=== PATIENT | female | born 1940 | race Caucasian/White ===

== ENCOUNTER 2018-03-03 02:03 | Inpatient (IN) | payer MEDICARE, BC ==
[2018-03-03] MEDS ORDERED: Labetalol HCl 100 MG/20 ML VIAL ONE (02:26)
[2018-03-03 02:46] LABS: #Basophils 0.1 thou/uL (0.0-0.2); #Eosinphils 0.2 thou/uL (0.0-0.7); #Lymphocytes 1.6 thou/uL (1.20-3.40); #Monocytes 0.6 thou/uL (0.11-0.59); #Neutrophils 3.1 thou/uL (1.40-6.50); %Basophils 0.9 % (0.0-1.0); %Eosinophils 3.5 % (0.0-10.0); %Lymphocytes 28.8 % (21.0-51.0); %Monocytes 10.8 % (0.0-10.0); Hemoglobin 13.1 g/dL (12.0-16.0); Mean Corpuscular HGB CONC 34.9 g/dL (32.0-36.0); Mean Corpuscular Hemoglobin 31.4 pg (27.0-31.0); Mean Corpuscular Volume 89.8 fL (78.0-98.0); Mean Platelet Volume 8.2 fL (7.4-10.4); Platelet Count 166 thou/uL (130-400); RBC Distribution Width 12.3 % (11.5-14.5); Red Blood Cell (RBC) Count 4.17 mill/uL (4.20-5.40); White Blood Cell (WBC) Count 5.6 thou/uL (4.8-10.8)
[2018-03-03] MEDS ORDERED: Ondansetron HCl/PF 4 MG/2 ML Vial ONE (02:50)
[2018-03-03 02:57] LABS: ALT (SGPT) 16 U/L (8-55); AST (SGOT) 22 U/L (5-34); Albumin 4.2 g/dL (3.4-4.8); Alkaline Phosphatase 74 U/L (40-150); Anion Gap 14 mmol/L (10-20); BUN (Urea Nitrogen) 34 mg/dL (9.8-20.1); Bilirubin, Total 0.4 mg/dL (0.2-1.2); CK (CPK) 93 U/L (29-168); Calc. Creatinine Clearance 0 mL/min (70-130); Calcium 9.7 mg/dL (7.8-10.44); Carbon Dioxide 21 mmol/L (23-31); Chloride 101 mmol/L (98-107); Estimated GFR-MDRD 38; Globulin 2.9 g/dL (2.4-3.5); Glucose 102 mg/dL (83-110); Magnesium 2.3 mg/dL (1.6-2.6); Potassium 4.1 mmol/L (3.5-5.1); Protein, Total 7.1 g/dL (6.0-8.3); Sodium 132 mmol/L (136-145)
[2018-03-03 03:07] LABS: CKMB 2.1 ng/mL (0-6.6); Troponin I Less than 0.010 ng/mL (< 0.028)
[2018-03-03 03:49] LABS: Bilirubin Negative (Negative); Blood, Urine Negative (Negative); Clarity CLEAR (Clear); Glucose, Urine (Dipstick) Negative (Negative); Leukocyte Moderate (Negative); Nitrite Positive (Negative); Protein, Urine (Dipstick) Negative (Neg-Trace); Specific Gravity, Urine 1.012 (1.002-1.036); Urobilinogen 0.2 mg/dL (0.2-1.0)
[2018-03-03 03:52] LABS: Bacteria/HPF 1+ HPF (None Seen); Hyaline Casts/LPF 0-3 HYALINE CAST LPF (0-3 Hyaline); Pathc Cast-AUWi Flag 0.29 (0-2.49); RBC/HPF None Seen HPF (0-3); Squamous Epithelial 0-3 HPF (0-3); WBC/HPF 21-50 HPF (0-3)
[2018-03-03 03:55] LABS: Yeast-AUWi Flag 83.3 (0-25.0)
[2018-03-03] MEDS ORDERED: Acetaminophen 500 MG TAB ONE (04:08)
[2018-03-03] MEDS ORDERED: Meclizine HCl 25 MG TAB ONE ×2 (04:08→05:35)
[2018-03-03 04:16] LABS: Yeast-All Forms None Seen HPF (None Seen)
[2018-03-03] MEDS ORDERED: cefTRIAXone\\ROCEPHIN 1 GM VIAL ONE (04:44)
[2018-03-03] MEDS ORDERED: Ondansetron HCl/PF 4 MG/2 ML Vial IVP PRN (06:13)
[2018-03-03 06:26] VITALS: BMI 25.4
--- NOTE | 2018-03-03 07:59 | CT ---
CT OF HEAD NONCONTRAST: INDICATION: Head pain with nausea, vomiting, and dizziness. No prior imaging comparison available. FINDINGS: There is mild parenchymal volume loss. The ventricular system is age-appropriate in size. Mild avionics systems repairer gloria ischemic disease is present within the cerebral white matter. No evidence of intracranial hemorr tyra, mass effect, or midline shift. Suggestion of a possible pineal cyst, although incompletely alexandro luated on the basis of this exam. IMPRESSION: 1. No acute intracranial abnormalities. 2. Mild chronic ischemic disease. POS: AGNES
[2018-03-03] MEDS ORDERED: hydrALAZINE 20 MG/ML VIAL SLOW IVP PRN (08:28)
[2018-03-03] MEDS ORDERED: Bisacodyl 5 MG TAB PO PRN (08:28)
[2018-03-03] MEDS ORDERED: Nitroglycerin 2% Ointment 1 INCH/1 GM Packet TOP SCH (08:45)
--- NOTE | 2018-03-03 08:57 | RAD ---
PORTABLE CHEST 1 VIEW: DATE: 03/03/18. TIME: 1:37 a.m. HISTORY: Syncope. FINDINGS: The heart size is normal. The aorta is tortuous. A right-side pacing device is present. No focal a reas of consolidation, pneumothorax, or pleural effusions are seen. There is no evidence of rj pu lmonary edema. Calcified left hilar lymph nodes are noted. IMPRESSION: No acute process. POS: OFF
[2018-03-03] MEDS ORDERED: Enoxaparin Sodium 40 MG/0.4 ML SYRINGE SC SCH (09:00)
[2018-03-03] MEDS: Famotidine 20 MG TAB PO SCH ×2 (09:16→22:00)
[2018-03-03] MEDS: Aspirin 81 mg Enteric Coated Tablet PO SCH (09:16)
[2018-03-03] MEDS: Sodium Chloride 0.9% 1,000 ML IV SCH ×2 (09:16→23:59)
[2018-03-03 09:47] LABS: Cardiac Risk 2.4 (Less than 4.5)
[2018-03-03] MEDS ORDERED: Clopidogrel Bisulfate 300 MG TAB PO SCH (11:30)
--- NOTE | 2018-03-03 12:19 | EKG ---
Test Reason : Blood Pressure : / mmHG Vent. Rate : 086 BPM Atrial Rate : 086 BPM P-R Int : 264 ms QRS Dur : 076 ms QT Int : 382 ms P-R-T Axes : 054 079 029 degrees QTc Int : 457 ms Sinus rhythm with 1st degree A-V block Anteroseptal infarct , age undetermined Abnormal ECG When compared with ECG of 03-MAR-2018 02:57, (Unconfirmed) Sinus rhythm has replaced Electronic ventricular pacemaker Confirmed by LETY RUSSO ([id number]) on 03/03/2018 12:19:12 PM Referred By: MAGALY Confirmed By:LETY RUSSO
[2018-03-03 17:15] LABS: Troponin I 1.899 ng/mL (< 0.028)
[2018-03-03 19:32] LABS: CKMB 12.5 ng/mL (0-6.6)
--- NOTE | 2018-03-03 20:04 | CT ---
CT OF HEAD NONCONTRAST: 03/03/18 CLINICAL HISTORY: New onset blurry vision. FINDINGS: Mild parenchymal volume loss is again demonstrated with a stable sized ventricular system. Mild chron ic microvascular ischemic disease remains. There is no interval acute intracranial hemorrhage, mass e ffect or midline shift. The exam is otherwise stable to exam earlier same date, 0234 hours. IMPRESSION: Stable head CT without interval acute intracranial hemorrhage or mass effect. Should neurologic deficits persists, consider followup imaging for further evaluation. POS: POLA
[2018-03-03] MEDS ORDERED: Non-Formulary Item 1 EACH (Carvedilol [Carvedilol] 1 TAB) PO SCH (21:00)
[2018-03-03] MEDS ORDERED: Metoprolol Tartrate 25 MG TAB PO SCH (21:00)
[2018-03-03] MEDS ORDERED: Atorvastatin Calcium 40 MG TAB PO SCH (21:00)
--- NOTE | 2018-03-03 21:48 | CON ---
DATE OF CONSULTATION: 03/03/2018 HISTORY OF PRESENT ILLNESS: Amparo Holloway is a 77-year-old white female admitted with nausea, vomiting, and blurred vision. She is a patient of Dr. Harrison Davison. Five years ago she apparently had a syncopal episode and had a [employer] pacemaker placed for that. She denies ever having a myocardial infarction or heart failure. Today, she woke up with nausea, vomiting, dizziness, and has had problems with blurred vision as well as double vision. She came to the emergency room and has had a head CT x2, which only revealed chronic ischemic changes. She is unable to have an MRI secondary to her pacemaker. Apparently this afternoon, she had central chest pressure that lasted hours, although the patient is uncertain how long it lasted. She denied any shortness of breath or diaphoresis with this. Cardiac enzymes were obtained and they are abnormal. She denies any chest discomfort at this time. She has been placed on Plavix 300 mg loading dose and then 75 per day and topical nitrates placed in addition to aspirin. PAST MEDICAL HISTORY: Hypercholesterolemia, hypertension. OPERATIONS: Hysterectomy, pacemaker placement, lumbar surgery, tonsillectomy. MEDICATIONS: Include Carvedilol 12.5 b.i.d., spironolactone 25 daily, simvastatin 40 at bedtime, Prilosec 40 daily, Myrbetriq 25 mg daily, aspirin 81 daily, magnesium 500 daily. ALLERGIES: None. SOCIAL HISTORY: She smoked half pack per day, but stopped 15 years ago. She does not drink. FAMILY HISTORY: Mother and father had myocardial infarctions. REVIEW OF SYSTEMS: Twelve point review of systems unremarkable except as noted above. PHYSICAL EXAMINATION: VITAL SIGNS: Blood pressure 141/79, pulse of 90 (when she presented, her blood pressure was 203/111 in the emergency room). HEENT: PERRL. NECK: Supple. CHEST: Clear. CARDIAC: S1, S2 normal, without any S3, S4 or murmurs. Carotid upstrokes normal, without bruits. ABDOMEN: Normal bowel sounds, without tenderness, organomegaly. EXTREMITIES: Revealed no clubbing, cyanosis or edema. NEUROLOGIC: Grossly intact. LABORATORY DATA: EKG revealed sinus rhythm with first-degree AV block, possible inferior and anterior infarcts. Another EKG shows ventricular pacing. CBC is unremarkable. Sodium 132, potassium 4.1, chloride 101, carbon dioxide 21, BUN 34, creatinine 1.36. Troponin I's gone from less than 0.010 up to 1.899 , cholesterol 190, triglycerides 58, HDL 80, LDL 98. IMPRESSION: 1. Probable posterior circulation transient ischemic attack versus cerebrovascular accident. 2. Probable non-ST elevation myocardial infarction. She had a prolonged episode of chest discomfort and troponin I is elevated, although this certainly may also be secondary to a stroke. 3. Hypertension. 4. Diabetes. 5. Hypercholesterolemia. 6. History of pacemaker placement. 7. Chronic kidney disease. 8. Former smoker. PLAN: A pacemaker will be interrogated to see if she has any episodes of atrial fibrillation and may have contributed to possible CVA. I feel that Neurology should be consulted. Echocardiogram will be performed to reassess left ventricular function. Certainly consideration may need to be given to cardiac catheterization; however, I feel that her neurological problems need to be evaluated and stabilized. GARY
[2018-03-03] MEDS: Enoxaparin Sodium 80 MG/0.8 ML SYRINGE SC SCH (22:00)
--- NOTE | 2018-03-03 22:50 | PRG ---
DATE OF SERVICE: 03/03/2018 CHIEF COMPLAINT: Nausea, vomiting, diarrhea. HISTORIAN: Patient's daughter. HISTORY OF PRESENT ILLNESS: This is a 77-year-old female with past medical history of hyperlipidemia , hypertension, status post pacemaker, presented with nausea, vomiting x3, and diarrhea. Per the pat ient, she woke up in the night and she wanted to go to the bathroom; however, she still felt very diz zy and very weak and she knew that she cannot be able to make it to the bathroom without falling. Th erefore, patient basically sat in bed and patient experienced some right eye burning and pain. The p atient then tried to move and the patient stated that she became very nauseous and very dizzy. The p atient then reached out her family member and during that time, she was having difficulty trying to e xpress herself and also trying to talk to her family member on the phone. The patient stated that sh e vomited numerous times and she can count about 3 times that she had vomited. Therefore, due to her nausea, vomiting, dizziness, the daughter felt the patient might be experiencing a stroke. This pro mpted ED visit. In the ED, the patient was given Tylenol, meclizine Rocephin injection, aspirin, lab etalol IV and a liter of fluid. The patient was then admitted to telemetry; however, on telemetry fl oor, patient started experiencing some chest discomfort. With that discomfort, EKG and troponins wer e ordered. Patient denied any headaches, urinary incontinence, abdominal pain, palpitations; however , admitted to having some nausea, dizziness, vomiting, chest discomfort, some weakness and diarrhea. REVIEW OF SYSTEMS: Positive for nausea, vomiting, chest discomfort, weakness, dizziness, burning of the eyes, blurry vision. Denied others except as stated in the HPI. PAST MEDICAL HISTORY: 1. Status post pacemaker. 2. Hyperlipidemia 3. Hypertension. PAST SURGICAL HISTORY: 1. Status post pacemaker. 2. Hysterectomy. 3. Spinal surgery. SOCIAL HISTORY: The patient is a former tobacco smoker, quit about 15 years ago. Occasional drinker , does not participate in any illicit drugs. FAMILY HISTORY: The patient stated that her mother and father . ALLERGIES: No known drug allergies. CURRENT MEDICATION: 1. Carvedilol 12.5 mg b.i.d. 2. Spironolactone 25 mg daily. 3. Zocor 40 mg daily. 4. Prilosec 40 mg daily. 5. Myrbetriq 25 mg. 6. Aspirin 81 mg daily. 7. Magnesium 500 mg daily. CODE STATUS: FULL CODE. PHYSICAL EXAMINATION: VITAL SIGNS: In the ED, the patient's blood pressure was 203/111, pulse of 75, respiratory rate of 1 8, temperature of 97.8, on admission, patient's blood pressure was hovering around 190/117, pulse 69, respiratory rate of 16. GENERAL: The patient is lying in bed comfortably, is not in any acute distress. HEENT: Normocephalic, atraumatic. Pupils are equally round and reactive to light. Extraocular move ments are intact. No scleral icterus noted. No nystagmus. NECK: No JVD. Trachea is midline. Mucous membranes are moist. CHEST: Lungs clear to auscultation bilaterally. No wheezing, no rales appreciated. CARDIAC: Positive S1, S2. Regular rate and rhythm. No murmurs, no gallops, no rubs appreciated. ABDOMEN: Soft, nontender, nondistended. Positive bowel sounds in all quadrants. No masses or perit davis signs. No rigidity, no guarding. EXTREMITIES: Upper extremity presents with 5/5 upper extremity strength and good radial pulses bilat erally in the lower extremities. The patient has 5/5 lower extremity strength and good dorsalis pedi s pulses bilaterally. NEUROLOGIC: Cranial nerves II-XII grossly intact. No focal neurologic deficits noted during physica l exam. The patient is alert and oriented x3. SKIN: Warm and dry, and intact. No rashes noted. PSYCHIATRIC: Normal affect. LABORATORY DATA: Patient's WBC 5.6, hemoglobin 13, platelet of 116. Chemistry: Sodium 132, potassi um was 4.1, carbon dioxide of 21, chloride 101, anion gap of 14, BUN of 34, creatinine of 1.36. Trop onins, first set troponin was 0.010, second set of troponins that was ordered was 1.010 and third set climbed up to 1.899. CK-MB climbed up from 2.1-12.5. The patient's lipid panel, triglycerides 58, cholesterol 190, LDL 98, HDL is 80. Urinalysis patient has positive nitrite and moderate leukoestera se. IMAGING: CT of the head showed no acute intracranial abnormalities, mild chronic ischemic changes. Chest x-ray shows no acute process. EKG that was ordered for the patient was in sinus rhythm with first degree AV block, anteroseptal inf arct, age indeterminate. ASSESSMENT: This is a 77-year-old female being admitted for: 1. Transient ischemic attack. The patient has been admitted to stroke floor. We will do neuro chec ks. Patient is on aspirin. If consulted, Neurology will see the patient. At this time, patient elena s not have any focal neurologic deficit noted. CT scan of the brain is negative so far. We will con tinue to monitor the patient very closely. The patient is on atorvastatin 80. We will continue perm issive hypertension due to the possibility of a stroke. We will get another CT in about 24 hours, if the patient complains of any other symptoms. 2. Chest pain, rule out acute coronary syndrome, non-ST elevated myocardial infarction. The patient at this point has chest pain. Troponins were ordered and troponins have been trending up and has be en positive from 0.010 to 1.09 to 1.8. There has been some T-wave changes in the inferior lead and s ome changes in T-wave inversions anteriorly. Cardiology has been made aware of possible non-ST eleva tion myocardial infarction. The patient has been started on aspirin, Plavix, Coreg, nitro paste, and therapeutic Lovenox. We will continue to monitor the patient very closely, 3. Hypertensive emergency. Patient at this time is presented with blood pressure that was in the 20 0 systolic over 100 diastolic. This is concerning for possible PRES syndrome since the patient is tran ving blurry vision, nausea and vomiting. At this point, we will consider another CT of the head in a couple of hours. We are awaiting Neurology consult. The patient has a pacemaker and is not compati ble with MRI, so it is going to be very difficult to get MRI to assess if the patient has this syndro me. We will continue to monitor the patient very closely. We will allow for permissive hypertension and we will order labetalol and hydralazine p.r.n. if blood pressure goes over 200 systolic. At thi s time, patient's blood pressure is around 170. We will keep the blood pressure around 170s to 180s systolic. We will continue to monitor the patient. If anything is happened acutely, we will conside r transferring the patient to ICU. 4. History of hypertension. Currently, patient is hypertensive. We will continue permissive hypert ension. We will start patient on Coreg and put p.r.n. blood pressure medications if blood pressure g oes above 200. 5. Hyperlipidemia. Patient was started on atorvastatin 80. Continue the patient on statin medicati on. 4. Asymptomatic urinary tract infection. Patient has positive nitrite and positive leukoesterase, b ut patient is asymptomatic. Therefore, we will not treat the patient. 5. Acute kidney injury. Patient's creatinine is elevated at 1.3. We will monitor closely and if ivette murray's creatinine is continuing to go up, we will get Nephrology on consult and evaluate the patient . 6. Deep venous thrombosis prophylaxis. We will do Pepcid for gastrointestinal prophylaxis and will do Lovenox for deep venous thrombosis prophylaxis.
[2018-03-03] MEDS: Acetaminophen 325 MG TAB PO PRN (23:57)
--- NOTE | 2018-03-04 00:03 | CON ---
DATE OF CONSULTATION: 03/03/2018 REFERRING PROVIDER: Dr. Rex Johnson. REASON FOR CONSULTATION: Dizziness and diplopia. HISTORY OF PRESENT ILLNESS: Ms. Holloway is a pleasant 77-year-old female , who has been consulted for evaluation of dizziness and diplopia. The patient' s daughter and son were present at bedside. The patient reports this morning around 1:00 a.m., she woke up with severe burning pain behind her right eye. She tried to go to the bathroom and noticed severe dizziness, became nauseated and vomited. She had pressed the Life Alert on her bracelet, which prompted the EMS arrival. She continued to have the dizziness and feeling like her head was spinning. She was also nauseated and vomiting. She continued to have the symptoms throughout the night. This morning, she started having double vision. The double vision is horizontal in nature, worse with looking at distance and improved with closing either eye. She also felt off balance and difficulty with walking. She did not have any numbness, tingling or weakness in upper or lower extremities. There was no chest pain or palpitations. She denied having any headache. There is no change in her speech or swallowing. PAST MEDICAL HISTORY: Significant for hypertension, hyperlipidemia, coronary artery disease. PAST SURGICAL HISTORY: Significant for hysterectomy, pacemaker placement, laminectomy. SOCIAL HISTORY: She is a former tobacco user. She denies alcohol use. She denies illicit drug use. CURRENT MEDICATIONS: Please review MAR. ALLERGIES: No known drug allergies. REVIEW OF SYSTEMS: As mentioned above in the HPI, otherwise negative. PHYSICAL EXAMINATION: VITAL SIGNS: Blood pressure of 141/79, pulse of 90, temperature of 97.6, respirations of 12, O2 sats of 94% on room air. GENERAL: Well-developed, well-nourished female, in no apparent distress. RESPIRATORY: Clear to auscultation bilaterally. CARDIOVASCULAR: Regular rate and rhythm. NEUROLOGIC: Mental status: The patient is awake, alert, oriented x3. Speech and language: Fluent speech. Cranial nerves: Pupils are 3 mm and reactive. Visual lane are intact. External muscles appear intact. No nystagmus is noted. No ptosis noted. Face appears symmetric. Tongue and uvula are midline. Motor exam showed normal tone and bulk with a 5/5 strength in both upper and lower extremities. Sensory: Sensation is intact and symmetric. Deep tendon reflexes: 2+ reflexes in both upper and lower extremities. Babinski: Plantar responses flexion bilaterally. Coordination intact to finger -nose-finger and finger tapping bilaterally. [id number]-ls-[id number] test is normal bilaterally. Romberg is positive. Gait is wide based, unsteady gait. LABORATORY DATA: Labs are reviewed, which included CBC, CMP, troponin, CK-MB lipid profile, and urinalysis, which is significant for BUN of 34, creatinine of 1.36, troponin of 1.899 and CK-MB of 12.5. Urinalysis showed positive nitrites, moderate leukocyte esterase and 21-50 wbc with 1+ bacteria. IMAGING STUDIES: CT head without contrast was reviewed, which showed no acute intracranial abnormality. IMPRESSION: 1. Diplopia. 2. Dizziness. 3. Possible brainstem infarct 4. Elevated troponin. ASSESSMENT AND PLAN: Ms. Holloway is a pleasant 77-year-old female with a pacemaker, presented with an acute onset of dizziness, vertigo, and diplopia. Based on the description of her symptoms, she likely has a brainstem involving infarct, possibly involving cranial nerve III. I have discussed with the patient and her family that given she has a pacemaker, we are unable to obtain MRI brain. Due to the fact that the MRI cannot be obtained, it is difficult to rule out stroke as CT scan does not well visualized infarction in the posterior fossa. Given that she has elevation of troponin, this is likely cardioembolic event. I do think that she needs echocardiogram and pacemaker interrogation done which she has planned to undergo tomorrow and if they are normal, she would benefit from having a cardiac catheterization done. For now, I would recommend continuing her on Plavix 75 mg daily for secondary stroke prevention. I have recommended for her to wear eye patch on each eye alternatively every 4 hours, which may help improve her double vision. If there is a source for cardioembolism then she will benefit from starting on anticoagulation therapy. I have answered all the questions that the patient's family had, to their satisfaction. Thank you for your consultation. GARY
[2018-03-04] MEDS: Carvedilol 6.25 MG TAB PO SCH ×3 (00:05→20:16)
[2018-03-04 05:34] LABS: Anion Gap 11 mmol/L (10-20); BUN (Urea Nitrogen) 17 mg/dL (9.8-20.1); Calc. Creatinine Clearance 51 mL/min (70-130); Calcium 8.6 mg/dL (7.8-10.44); Carbon Dioxide 20 mmol/L (23-31); Chloride 104 mmol/L (98-107); Estimated GFR-MDRD 55; Glucose 88 mg/dL (83-110); Potassium 3.8 mmol/L (3.5-5.1); Sodium 131 mmol/L (136-145)
[2018-03-04] MEDS: Enoxaparin Sodium 80 MG/0.8 ML SYRINGE SC SCH ×2 (08:33→20:16)
[2018-03-04] MEDS: Magnesium Oxide 250 MG TAB PO SCH (08:34)
[2018-03-04] MEDS: Aspirin 81 mg Enteric Coated Tablet PO SCH (08:34)
[2018-03-04] MEDS: Famotidine 20 MG TAB PO SCH ×2 (08:37→20:16)
[2018-03-04] MEDS: Clopidogrel Bisulfate 75 MG TAB PO SCH (08:37)
[2018-03-04] MEDS: Acetaminophen 325 MG TAB PO PRN (08:46)
[2018-03-04] MEDS ORDERED: Non-Formulary Item 1 EACH (Magnesium Oxide [Magnesium] 500 MG) PO SCH (09:00)
[2018-03-04] MEDS ORDERED: Polyethylene Glycol 3350 17 GM Packet PO PRN (15:32)
[2018-03-04] MEDS ORDERED: Senokot 8.6 MG TAB PO PRN (15:32)
[2018-03-04] MEDS ORDERED: Meclizine HCl 25 MG TAB PO PRN (15:32)
--- NOTE | 2018-03-04 17:31 | ULT ---
CAROTID ULTRASOUND WITH MONTE SCALE AND DOPPLER DUPLEX COLOR FLOW IMAGING SPECTRAL ANALYSIS PERFORMED: 03/04/18 CLINICAL INDICATION: Stroke, diplopia. FINDINGS: There is moderate to severe bilateral plaque formation some of which is calcified which does limit as sessment. There is no abnormal elevation of ICA velocities bilaterally. ICA to CCA ratio falls within normal range bilaterally. There is antegrade flow within the visualized bilateral vertebral arteries. IMPRESSION: 1. No hemodynamically significant stenosis of the right internal carotid artery. 2. No hemodynamically stenosis of the left internal carotid artery. 3. There is prominent plaque formation some of which is calcified. POS: POLA
[2018-03-04] MEDS ORDERED: Communication Order-Pharmacy FS SCH (17:45)
--- NOTE | 2018-03-04 18:12 | PDOC.PN ---
- Subjective Encounter Start Date: 03/04/18 Encounter Start Time: 14:00 Patient seen and examined for Acute CVA/NSTEMI. Double vision +. No new CP or focal deficits. No overnight events - Objective MAR Reviewed: Yes Vital Signs & Weight: Vital Signs (12 hours) Temp Pulse Resp BP BP Pulse Ox 03/04/18 15:48 97.4 F L 70 18 125/68 94 L 03/04/18 11:52 97.7 F 64 18 132/68 94 L 03/04/18 08:36 141/83 H 03/04/18 08:23 98.6 F 74 20 141/83 H 92 L 03/04/18 08:00 98.6 F 74 20 Weight Weight 156 lb 1.396 oz I&O: 03/03/18 03/04/18 03/05/18 06:59 06:59 06:59 Intake Total 1394 Output Total 300 450 Balance -300 944 Result Diagrams: 03/03/18 02:29 03/04/18 04:40 EKG Reviewed by me: Yes (Tele SR) Phys Exam - Physical Examination Constitutional: NAD Respiratory: no wheezing, no rhonchi Cardiovascular: RRR, no rub Gastrointestinal: soft, non-tender, positive bowel sounds Musculoskeletal: no edema Neurological: non-focal, normal sensation, moves all 4 limbs Dx/Plan - Plan DVT proph w/lovenox, DVT proph w/SCDs IMPRESSION: 1. NSTEMI 2. Acute CVA causing double vision 3. HTN 4. HLD 5. AMADEO/CKD 3 - improving PLAN: DC IVF Cont ASA/Plavix Cath in AM Await Echo/Carotid Cont current meds as below Review of Systems - Review of Systems Respiratory: negative: Cough, Dry, Shortness of Breath, Hemoptysis, SOB with Excertion, Pleuritic Pain, Sputum, Wheezing Cardiovascular: negative: chest pain, palpitations, orthopnea, paroxysmal nocturnal dyspnea, edema, light headedness, other - Medications/Allergies Allergies/Adverse Reactions: Allergies Allergy/AdvReac Type Severity Reaction Status Date / Time No Known Allergies Allergy Unverified 03/03/18 06:07 Medications: Current Medications Acetaminophen (Tylenol) 650 mg PO Q4H PRN PRN Reason: Headache/Fever or Pain Last Admin: 03/04/18 08:46 Dose: 650 mg Aspirin (Ecotrin) 81 mg PO DAILY [facility] Last Admin: 03/04/18 08:34 Dose: 81 mg Atorvastatin Calcium (Lipitor) 40 mg PO HS [facility] Bisacodyl (Dulcolax) 10 mg PO DAILYPRN PRN PRN Reason: Constipation Carvedilol (Coreg) 12.5 mg PO BID [facility] Last Admin: 03/04/18 08:36 Dose: 12.5 mg Clopidogrel Bisulfate (Plavix) 75 mg PO DAILY [facility] Last Admin: 03/04/18 08:37 Dose: 75 mg Enoxaparin Sodium (Lovenox) 70 mg SC 0900,2100 [facility] Stop: 03/04/18 23:59 Last Admin: 03/04/18 08:33 Dose: 70 mg Famotidine (Pepcid) 20 mg PO BID [facility] Last Admin: 03/04/18 08:37 Dose: 20 mg Hydralazine HCl (Apresoline) 10 mg SLOW IVP Q4H PRN PRN Reason: Angina Sodium Chloride (Normal Saline 0.9%) 1,000 mls @ 100 mls/hr IV .Q10H [facility] Magnesium Oxide (Magnesium Oxide) 500 mg PO DAILY [facility] Last Admin: 03/04/18 08:34 Dose: 500 mg Meclizine HCl (Antivert) 25 mg PO Q8H PRN PRN Reason: Dizziness Mirabegron (Myrbetriq Er) 25 mg PO DAILY [facility] Last Admin: 03/04/18 08:33 Dose: 25 mg Miscellaneous Information (Communication Order-Pharmacy) 0 each FS ONE [facility] Stop: 03/04/18 23:59 Ondansetron HCl (Zofran) 4 mg IVP TIDPRN PRN PRN Reason: Nausea/Vomiting Polyethylene Glycol (Miralax) 17 gm PO DAILY PRN PRN Reason: Constipation Senna (Senokot) 2 tab PO HSPRN PRN PRN Reason: Constipation Sodium Chloride (Flush - Normal Saline) 10 ml IVF PRN PRN PRN Reason: Saline Flush Last Admin: 03/03/18 21:58 Dose: 10 ml
[2018-03-04] MEDS: Atorvastatin Calcium 40 MG TAB PO SCH (20:16)
[2018-03-05 05:51] LABS: #Eosinphils 0.2 thou/uL (0.0-0.7); #Lymphocytes 1.9 thou/uL (1.20-3.40); #Monocytes 0.7 thou/uL (0.11-0.59); #Neutrophils 2.6 thou/uL (1.40-6.50); %Basophils 0.9 % (0.0-1.0); %Eosinophils 3.8 % (0.0-10.0); %Lymphocytes 34.8 % (21.0-51.0); %Monocytes 12.9 % (0.0-10.0); %Neutrophils 47.6 % (42.0-75.0); Hemoglobin 12.2 g/dL (12.0-16.0); Mean Corpuscular HGB CONC 34.5 g/dL (32.0-36.0); Mean Corpuscular Hemoglobin 30.6 pg (27.0-31.0); Mean Corpuscular Volume 88.7 fL (78.0-98.0); Mean Platelet Volume 8.3 fL (7.4-10.4); Platelet Count 183 thou/uL (130-400); RBC Distribution Width 12.4 % (11.5-14.5); Red Blood Cell (RBC) Count 3.98 mill/uL (4.20-5.40); White Blood Cell (WBC) Count 5.5 thou/uL (4.8-10.8)
[2018-03-05 05:54] LABS: Anion Gap 9 mmol/L (10-20); BUN (Urea Nitrogen) 15 mg/dL (9.8-20.1); Calc. Creatinine Clearance 51 mL/min (70-130); Calcium 8.8 mg/dL (7.8-10.44); Carbon Dioxide 24 mmol/L (23-31); Chloride 102 mmol/L (98-107); Estimated GFR-MDRD 53; Glucose 92 mg/dL (83-110); Sodium 131 mmol/L (136-145)
--- NOTE | 2018-03-05 06:04 | EKG ---
Test Reason : STAT Blood Pressure : / mmHG Vent. Rate : 082 BPM Atrial Rate : 082 BPM P-R Int : 266 ms QRS Dur : 072 ms QT Int : 374 ms P-R-T Axes : 059 -02 033 degrees QTc Int : 436 ms Sinus rhythm with 1st degree A-V block Inferior infarct , age undetermined Anterior infarct (cited on or before 03-MAR-2018) Abnormal ECG When compared with ECG of 03-MAR-2018 09:34, T wave inversion now evident in Anterior leads Confirmed by LETY RUSSO ([id number]) on 03/05/2018 6:03:44 AM Referred By: Confirmed By:LETY RUSSO
[2018-03-05] MEDS: Carvedilol 6.25 MG TAB PO SCH (06:07)
[2018-03-05] MEDS: Clopidogrel Bisulfate 75 MG TAB PO SCH (06:09)
[2018-03-05] MEDS: Famotidine 20 MG TAB PO SCH ×2 (06:09→21:24)
[2018-03-05] MEDS: Magnesium Oxide 250 MG TAB PO SCH (06:09)
[2018-03-05] MEDS: Aspirin 81 mg Enteric Coated Tablet PO SCH (06:09)
[2018-03-05] MEDS: Sodium Chloride 0.9% 1,000 ML IV SCH ×2 (06:10→14:32)
[2018-03-05] MEDS ORDERED: Iopamidol 370 76% 100 ML VIAL ONE (08:19)
[2018-03-05] MEDS ORDERED: Iopamidol 370 76% 50 ML VIAL FS ONE (08:19)
[2018-03-05] MEDS ORDERED: Lidocaine 1% (PF) 30 ML VIAL ONE (14:14)
[2018-03-05] MEDS ORDERED: Heparin 10,000 UNITS/1 ML VIAL ONE (14:16)
[2018-03-05] MEDS ORDERED: Midazolam HCl 2 mg/2 ml Vial ONE (14:41)
[2018-03-05] MEDS ORDERED: Fentanyl 100 MCG/2 ML VIAL ONE (14:41)
[2018-03-05] MEDS ORDERED: Bivalirudin 250 MG VIAL ONE (15:34)
[2018-03-05] MEDS ORDERED: Sodium Chloride 0.9% 1,000 ML IV SCH (16:02)
[2018-03-05] MEDS ORDERED: diphenhydrAMINE 2% CREAM 28.4 GM TUBE TOP PRN (17:11)
--- NOTE | 2018-03-05 20:28 | PDOC.PN ---
- Subjective Encounter Start Date: 03/05/18 Encounter Start Time: 11:30 Patient seen and examined for Acute CVA. No new complaints. Visual deficits same. No overnight events - Objective MAR Reviewed: Yes Vital Signs & Weight: Vital Signs (12 hours) Temp Pulse Resp BP Pulse Ox 03/05/18 11:56 97.6 F 73 16 129/75 94 L Weight Weight 156 lb 1.396 oz I&O: 03/04/18 03/05/18 03/06/18 06:59 06:59 06:59 Intake Total 1394 350 600 Output Total 450 1150 Balance 944 350 -550 Result Diagrams: 03/06/18 05:13 03/06/18 05:13 Radiology Reviewed by me: No (Echo - Ef 30-35%, Carotid - neg) EKG Reviewed by me: Yes (Tele SR) Phys Exam - Physical Examination Constitutional: NAD Respiratory: no wheezing Cardiovascular: RRR, no rub Gastrointestinal: soft, non-tender, positive bowel sounds Musculoskeletal: no edema Neurological: non-focal, normal sensation, moves all 4 limbs Double vision + Psychiatric: A&O x 3 Dx/Plan - Plan DVT proph w/SCDs IMPRESSION: 1. NSTEMI 2. Acute CVA causing double vision 3. HTN 4. HLD 5. AMADEO/CKD 3 - improving 6. ?UTI PLAN: Cath today Cont ASA/Plavix Cont current meds as below Add urine culture - Hold Atbx for now Cont Lipitor/Coreg Review of Systems - Review of Systems Respiratory: negative: Cough, Dry, Shortness of Breath, Hemoptysis, SOB with Excertion, Pleuritic Pain, Sputum, Wheezing Cardiovascular: negative: chest pain, palpitations, orthopnea, paroxysmal nocturnal dyspnea, edema, light headedness, other - Medications/Allergies Allergies/Adverse Reactions: Allergies Allergy/AdvReac Type Severity Reaction Status Date / Time No Known Allergies Allergy Unverified 03/03/18 06:07 Medications: Current Medications Acetaminophen (Tylenol) 650 mg PO Q4H PRN PRN Reason: Headache/Fever or Pain Last Admin: 03/04/18 08:46 Dose: 650 mg Aspirin (Ecotrin) 81 mg PO DAILY [facility] Last Admin: 03/05/18 06:09 Dose: 81 mg Atorvastatin Calcium (Lipitor) 40 mg PO HS [facility] Last Admin: 08/16/18 20:16 Dose: 40 mg Bisacodyl (Dulcolax) 10 mg PO DAILYPRN PRN PRN Reason: Constipation Carvedilol (Coreg) 12.5 mg PO BID [facility] Last Admin: 03/05/18 06:07 Dose: 12.5 mg Clopidogrel Bisulfate (Plavix) 75 mg PO DAILY [facility] Last Admin: 03/05/18 06:09 Dose: 75 mg Docusate Sodium (Colace) 100 mg PO BID [facility] Famotidine (Pepcid) 20 mg PO BID [facility] Last Admin: 03/05/18 06:09 Dose: 20 mg Furosemide (Lasix) 20 mg PO DAILY [facility] Hydralazine HCl (Apresoline) 10 mg SLOW IVP Q4H PRN PRN Reason: Angina Sodium Chloride (Normal Saline 0.9%) 1,000 mls @ 125 mls/hr IV .Q8H [facility] Stop: 03/05/18 22:00 Lisinopril (Zestril) 2.5 mg PO DAILY [facility] Magnesium Oxide (Magnesium Oxide) 500 mg PO DAILY [facility] Last Admin: 03/05/18 06:09 Dose: 500 mg Meclizine HCl (Antivert) 25 mg PO Q8H PRN PRN Reason: Dizziness Mirabegron (Myrbetriq Er) 25 mg PO DAILY [facility] Last Admin: 03/05/18 06:07 Dose: 25 mg Ondansetron HCl (Zofran) 4 mg IVP TIDPRN PRN PRN Reason: Nausea/Vomiting Polyethylene Glycol (Miralax) 17 gm PO DAILY PRN PRN Reason: Constipation Senna (Senokot) 2 tab PO HSPRN PRN PRN Reason: Constipation Sodium Chloride (Flush - Normal Saline) 10 ml IVF PRN PRN PRN Reason: Saline Flush Last Admin: 03/05/18 06:09 Dose: 10 ml Zinc Acetate/Diphenhydramine (Benadryl 2% Cream) 0 gm TOP QID PRN PRN Reason: Rash/Topical Irritation
[2018-03-05] MEDS: Docusate 100 MG CAP PO SCH (21:24)
[2018-03-05] MEDS: Acetaminophen 325 MG TAB PO PRN (21:24)
[2018-03-05] MEDS: Atorvastatin Calcium 40 MG TAB PO SCH (21:24)
[2018-03-06] MEDS: traMADol HCl 50 MG TAB PO PRN ×3 (01:27→20:34)
[2018-03-06] MEDS: Carvedilol 6.25 MG TAB PO SCH ×3 (01:29→20:49)
[2018-03-06 05:36] LABS: #Eosinphils 0.1 thou/uL (0.0-0.7); #Lymphocytes 0.9 thou/uL (1.20-3.40); #Monocytes 0.7 thou/uL (0.11-0.59); #Neutrophils 4.5 thou/uL (1.40-6.50); %Basophils 0.3 % (0.0-1.0); %Eosinophils 1.8 % (0.0-10.0); %Lymphocytes 14.9 % (21.0-51.0); %Monocytes 11.7 % (0.0-10.0); %Neutrophils 71.3 % (42.0-75.0); Hemoglobin 9.9 g/dL (12.0-16.0); Mean Corpuscular HGB CONC 34.1 g/dL (32.0-36.0); Mean Corpuscular Hemoglobin 30.8 pg (27.0-31.0); Mean Corpuscular Volume 90.2 fL (78.0-98.0); Mean Platelet Volume 8.4 fL (7.4-10.4); Platelet Count 160 thou/uL (130-400); RBC Distribution Width 12.2 % (11.5-14.5); Red Blood Cell (RBC) Count 3.22 mill/uL (4.20-5.40); White Blood Cell (WBC) Count 6.3 thou/uL (4.8-10.8)
[2018-03-06 05:57] LABS: ALT (SGPT) 14 U/L (8-55); AST (SGOT) 24 U/L (5-34); Albumin 3.1 g/dL (3.4-4.8); Alkaline Phosphatase 55 U/L (40-150); Anion Gap 9 mmol/L (10-20); BUN (Urea Nitrogen) 17 mg/dL (9.8-20.1); Bilirubin, Total 0.4 mg/dL (0.2-1.2); Calc. Creatinine Clearance 53 mL/min (70-130); Calcium 8.2 mg/dL (7.8-10.44); Carbon Dioxide 23 mmol/L (23-31); Chloride 104 mmol/L (98-107); Estimated GFR-MDRD 55; Globulin 2.1 g/dL (2.4-3.5); Glucose 106 mg/dL (83-110); Potassium 3.7 mmol/L (3.5-5.1); Protein, Total 5.2 g/dL (6.0-8.3); Sodium 132 mmol/L (136-145)
[2018-03-06] MEDS: Aspirin 81 mg Enteric Coated Tablet PO SCH (09:23)
[2018-03-06] MEDS: Magnesium Oxide 250 MG TAB PO SCH (09:24)
[2018-03-06] MEDS: Furosemide 20 MG TAB PO SCH (09:24)
[2018-03-06] MEDS: Clopidogrel Bisulfate 75 MG TAB PO SCH (09:24)
[2018-03-06] MEDS: Lisinopril 2.5 MG TAB PO SCH (09:24)
[2018-03-06] MEDS: Famotidine 20 MG TAB PO SCH ×2 (09:24→20:29)
[2018-03-06] MEDS: Docusate 100 MG CAP PO SCH ×2 (09:25→20:28)
--- NOTE | 2018-03-06 10:18 | CT ---
CONTRAST ENHANCED CTA CAROTID ARTERIES: Date: 03/06/18 HISTORY: Diplopia and dizziness. TECHNIQUE: Contrast enhanced CTA carotid arteries obtained. 2D and 3D reconstructed images performed on an [employer] 3D workstation. FINDINGS: The aortic arch demonstrates some vascular calcifications. Right and left common carotid artery proxi mal calcifications seen. Small amount of calcifications seen in the right brachiocephalic artery and right subclavian artery. The right common carotid artery in the distal aspects contain areas of atherosclerotic plaque. Calcif ied and noncalcified plaque seen at the origin of the right ICA, which is a tortuous vessel. There ap pears to be an area of ulceration in this proximal right ICA. There is [id number] 50-60% right IC A stenosis. More distally, the right ICA is patent. No significant evidence of left CCA plaque seen. Some calcified and noncalcified plaque seen at the o rigin of the left ICA resulting in approximately 30% stenosis. More distally, the left ICA is patent. Both vertebral arteries are patent, but quite small. IMPRESSION: Area of ulcerative 60% stenosis of the proximal right ICA. Less significant calcified plaque seen in the left ICA. POS: [facility]
[2018-03-06 12:36] LABS: Troponin I 0.343 ng/mL (< 0.028)
--- NOTE | 2018-03-06 14:43 | PDOC.CTH ---
<Bebe Kelly - Last Filed: 03/06/18 14:41> Cardiology Progress Note - Subjective No complaints today. Waiting on LifeVest. Also [facility] consults regarding ICA. - Objective Vital Signs Temp Pulse Resp BP BP BP Pulse Ox 03/06/18 11:55 97.7 F 66 16 111/65 96 03/06/18 09:24 77 117/69 03/06/18 08:00 98 F 77 16 03/06/18 07:57 98 F 77 16 117/69 94 L 03/06/18 04:33 97.4 F L 80 18 103/56 L 94 L Weight 156 lb 1.396 oz 03/05/18 03/06/18 03/07/18 06:59 06:59 06:59 Intake Total 505 013 3088 Output Total 1150 1200 Balance 350 -550 1015 - Physical Examination General/Neuro: alert & oriented x3 Neck: no JVD present Lungs: CTA Heart: RRR Abdomen: NT/ND - Labs Result Diagrams: 03/06/18 05:13 03/06/18 05:13 Troponin/CKMB CK-MB (CK-2) 12.5 ng/mL (0-6.6) H* 03/03/18 18:56 Troponin I 0.343 ng/mL (< 0.028) H* 03/06/18 11:38 - Assessment/Plan 1. Nonischemic dilated UNDERWEAR HEMMER 2. Takotsubo's 3. NSTEMI 4. TIA vs CVA 5. HTN 6. HLD Stable. Up walking in room. No complaints. Awaiting LV placement prior to discharge. No changes to meds today. <Donaldo Vasquez - Last Filed: 03/06/18 17:10> Cardiology Progress Note - Objective Vital Signs Temp Pulse Resp BP BP Pulse Ox 03/06/18 15:26 97.5 F L 70 20 109/55 L 93 L 03/06/18 11:55 97.7 F 66 16 111/65 96 03/06/18 09:24 77 117/69 03/06/18 08:00 98 F 77 16 03/06/18 07:57 98 F 77 16 117/69 94 L Weight 156 lb 1.396 oz 03/05/18 03/06/18 03/07/18 06:59 06:59 06:59 Intake Total 321 113 3600 Output Total 1150 1200 Balance 350 -550 1015 - Labs Result Diagrams: 03/06/18 05:13 03/06/18 05:13 Troponin/CKMB CK-MB (CK-2) 12.5 ng/mL (0-6.6) H* 03/03/18 18:56 Troponin I 0.284 ng/mL (< 0.028) H 03/06/18 15:07 - Assessment/Plan Pt seen and examined. Agree with above. Await recommendations fro Dr. Crews. Concerned about recent CVA and concerned about origin from apex given recent diagnosis of CM. If Mars feels she is not a candidate for CEA, recommend ACT. R/B discussed. Family is agreeable.
[2018-03-06 15:50] LABS: Troponin I 0.284 ng/mL (< 0.028)
[2018-03-06] MEDS: Enoxaparin Sodium 80 MG/0.8 ML SYRINGE SC SCH (20:27)
[2018-03-06] MEDS: Atorvastatin Calcium 40 MG TAB PO SCH (20:29)
--- NOTE | 2018-03-06 22:12 | PDOC.PN ---
- Subjective Encounter Start Date: 03/06/18 Encounter Start Time: 13:00 Patient seen and examined for Acute CVA. Double vision with dizziness - same. Some Chest discomfort earlier. No overnight events - Objective MAR Reviewed: Yes Vital Signs & Weight: Vital Signs (12 hours) Temp Pulse Resp BP BP Pulse Ox 03/06/18 20:49 107/61 03/06/18 15:26 97.5 F L 70 20 109/55 L 93 L 03/06/18 11:55 97.7 F 66 16 111/65 96 Weight Weight 156 lb 1.396 oz I&O: 03/05/18 03/06/18 03/07/18 06:59 06:59 06:59 Intake Total 682 723 7993 Output Total 1150 1200 Balance 350 -550 1135 Result Diagrams: 03/06/18 05:13 03/06/18 05:13 Additional Labs: Laboratory Tests 03/03/18 03/03/18 03/06/18 16:39 18:56 11:38 CK-MB (CK-2) 12.5 H* Troponin I 1.899 H* 0.343 H* 03/06/18 15:07 CK-MB (CK-2) Troponin I 0.284 H Radiology Reviewed by me: No (CTA - Rt ICA stenosis) EKG Reviewed by me: Yes (Tele SR) Phys Exam - Physical Examination Constitutional: NAD Respiratory: no wheezing, no rhonchi Cardiovascular: RRR, no rub Gastrointestinal: soft, non-tender, positive bowel sounds Musculoskeletal: no edema Neurological: moves all 4 limbs No new focal findings Psychiatric: A&O x 3 Dx/Plan - Plan DVT proph w/SCDs IMPRESSION: 1. NSTEMI 2. Acute CVA causing double vision 3. HTN 4. Rt ICA stenosis 5. AMADEO/CKD 3 - resolved 6. HLD / ?UTI - asymptomatic - cultures neg PLAN: Cont ASA/Plavix Await CV input Cont low dose Lasix with Lisinopril Cont current meds as below Cont Lipitor/Coreg Review of Systems - Review of Systems Respiratory: negative: Cough, Dry, Shortness of Breath, Hemoptysis, SOB with Excertion, Pleuritic Pain, Sputum, Wheezing Cardiovascular: negative: chest pain, palpitations, orthopnea, paroxysmal nocturnal dyspnea, edema, light headedness, other - Medications/Allergies Allergies/Adverse Reactions: Allergies Allergy/AdvReac Type Severity Reaction Status Date / Time No Known Allergies Allergy Unverified 03/03/18 06:07 Medications: Current Medications Acetaminophen (Tylenol) 650 mg PO Q4H PRN PRN Reason: Headache/Fever or Pain Last Admin: 03/05/18 21:24 Dose: 650 mg Aspirin (Ecotrin) 81 mg PO DAILY [facility] Last Admin: 03/06/18 09:23 Dose: 81 mg Atorvastatin Calcium (Lipitor) 40 mg PO HS [facility] Last Admin: 03/06/18 20:29 Dose: 40 mg Bisacodyl (Dulcolax) 10 mg PO DAILYPRN PRN PRN Reason: Constipation Carvedilol (Coreg) 12.5 mg PO BID [facility] Last Admin: 03/06/18 20:49 Dose: Not Given Docusate Sodium (Colace) 100 mg PO BID [facility] Last Admin: 03/06/18 20:28 Dose: 100 mg Enoxaparin Sodium (Lovenox) 70 mg SC 0900,2100 [facility] Last Admin: 03/06/18 20:27 Dose: 70 mg Famotidine (Pepcid) 20 mg PO BID [facility] Last Admin: 03/06/18 20:29 Dose: 20 mg Furosemide (Lasix) 20 mg PO DAILY [facility] Last Admin: 03/06/18 09:24 Dose: 20 mg Hydralazine HCl (Apresoline) 10 mg SLOW IVP Q4H PRN PRN Reason: Angina Lisinopril (Zestril) 2.5 mg PO DAILY [facility] Last Admin: 03/06/18 09:24 Dose: 2.5 mg Magnesium Oxide (Magnesium Oxide) 500 mg PO DAILY [facility] Last Admin: 03/06/18 09:24 Dose: 500 mg Meclizine HCl (Antivert) 25 mg PO Q8H PRN PRN Reason: Dizziness Mirabegron (Myrbetriq Er) 25 mg PO DAILY [facility] Last Admin: 03/06/18 09:24 Dose: 25 mg Ondansetron HCl (Zofran) 4 mg IVP TIDPRN PRN PRN Reason: Nausea/Vomiting Last Admin: 03/06/18 11:39 Dose: 4 mg Polyethylene Glycol (Miralax) 17 gm PO DAILY PRN PRN Reason: Constipation Senna (Senokot) 2 tab PO HSPRN PRN PRN Reason: Constipation Last Admin: 03/06/18 20:28 Dose: 2 tab Sodium Chloride (Flush - Normal Saline) 10 ml IVF PRN PRN PRN Reason: Saline Flush Last Admin: 03/06/18 20:43 Dose: 10 ml Tramadol HCl (Ultram) 50 mg PO Q6H PRN PRN Reason: Pain 4-6 Last Admin: 03/06/18 20:34 Dose: 50 mg Zinc Acetate/Diphenhydramine (Benadryl 2% Cream) 0 gm TOP QID PRN PRN Reason: Rash/Topical Irritation
[2018-03-07] MEDS: Lisinopril 2.5 MG TAB PO SCH (08:47)
[2018-03-07] MEDS: Docusate 100 MG CAP PO SCH (08:48)
[2018-03-07] MEDS: Famotidine 20 MG TAB PO SCH (08:48)
[2018-03-07] MEDS: Aspirin 81 mg Enteric Coated Tablet PO SCH (08:48)
[2018-03-07] MEDS: Furosemide 20 MG TAB PO SCH (08:48)
[2018-03-07] MEDS: Magnesium Oxide 250 MG TAB PO SCH (08:48)
[2018-03-07] MEDS: Carvedilol 6.25 MG TAB PO SCH (08:48)
[2018-03-07] MEDS: Enoxaparin Sodium 80 MG/0.8 ML SYRINGE SC SCH (08:49)
--- NOTE | 2018-03-07 11:46 | CON ---
This is a 77-year-old female who was admitted about 4 days ago with some nausea, vomiting, double vis ion and was found to have a bump in her troponin I. She had a cardiac catheterization demonstrating mild coronary disease with an akinetic apex suggesting Takotsubo syndrome. Her past cardiac history include bilateral pacemaker placement with bilateral subclavian vein attempts resulting in bilateral pneumothoraces. Otherwise, she has hypertension, dyslipidemia, and remote smoking history which she says she stopped 40 years ago. She was seen by Neurology with a suspicion of a posterior fossa or br ainstem infarction accounting for her double vision, although an MRI could not be done because of her pacemaker. A carotid ultrasound demonstrated some calcification in her carotid arteries with no sig nificant stenosis and a CT angiogram was read as small vertebral arteries, calcified bilateral caroti d disease with only moderate stenosis on my review of probably 50% bilaterally. It was read as an ul cerated plaque on the right. However, it was not very impressive to my review. At this time, I have not recommended any intervention for carotid artery disease and obviously did not suspect had any ca use for her recent possible brainstem infarction and noted left ventricular dysfunction. She is melly g to be discharged today with a LifeVest and Plavix and mildly suggesting at this time is for a [facility] carotid ultrasound in 1 year.
[2018-03-07 15:19] VITALS: BP 110/61; TEMP 98.7
[2018-03-07] MEDS ORDERED: Apixaban 5 MG TAB PO SCH (21:00)
[2018-03-07] MEDS ORDERED: Atorvastatin Calcium 10 MG TAB PO SCH (21:00)
--- NOTE | 2018-03-08 12:01 | DIS ---
DATE OF ADMISSION: 03/03/2018 DATE OF DISCHARGE: 03/07/2018 DISCHARGE DISPOSITION: Home. FOLLOWUP: Follow up with primary care physician, Dr. Omer Parnell in 1 week. Follow up with primar lead painter, Dr. Harrison Davison in 1 week. Follow up with Dr. Iris Young in 1-2 weeks. ALLERGIES: No known drug allergies. DISCHARGE MEDICATIONS: Aspirin 81 mg daily, apixaban 5 mg twice a day, carvedilol 12.5 mg b.i.d., ca lcium carbonate 500 mg daily, mirabegron 25 mg, magnesium oxide daily, omeprazole 40 mg daily, Zocor 40 mg at bedtime. The patient declined Lipitor 40 mg at bedtime. She requested to continue Zocor. Lasix 20 mg daily, Lisinopril 2.5 mg daily. INPATIENT CONSULTANTS: Cardiovascular, Dr. Crews; Cardiology, Dr. Joseph Preciado; Neurology, Dr. Mundo Young. BRIEF HOSPITAL COURSE: The patient is a 77-year-old female with hypertension, hyperlipidemia, status post pacemaker, presented to the hospital with nausea, vomiting and diarrhea. She also had double v ision along with some chest discomfort. Please refer to the history and physical dated 03/03/2018 fo r further details. The patient was admitted to the hospital with a diagnosis of suspected CVA with non-ST elevation CO. Her maximum troponin went up to 1.89. The patient was seen by multiple consultants including Cardio logy, Dr. Joseph Preciado and Neurology, Dr. Young. MRI of the brain could not be done due to pacemak er. Initial CT scan of the brain was negative. Initially, Plavix was added to her regimen. Cardiac catheterization was performed by Dr. Preciado on the that showed 50% stenosis, 21 mm in length in the mid LAD. Left main was normal. Left circumflex was normal. There was 40% stenosis, 6 mm in length in proximal RCA and 50% stenosis, 8 mm length in the mid RCA. The ejection fraction was 30% o n the cath with Takotsubo cardiomyopathy. Ejection fraction on the echocardiogram was 30%-35%. Dr. Vasquez rounded on the patient over the weekend for Dr. Preciado. Dr. Vasquez recommended discon tinuation of Plavix and starting her on Eliquis. The patient understands the risks not limited to li fe-threatening complications including bleeding from Eliquis. The patient and the family stated unde rstanding. I also discussed with Neurology, Dr. Young, who agrees with Eliquis. The patient underwent CT angiography of the neck per Neurology recommendation that showed area of ulc erative 60% stenosis in the proximal right ICA. The patient was seen by Dr. Crews who recommended ou tpatient followup. She has been cleared by consultants for discharge. FINAL DIAGNOSES: 1. Acute cerebrovascular accident. The patient still has residual double vision with blurring of vi katty. The patient was also seen by Ophthalmology, Dr. Hyde during this hospitalization. 2. Non-ST elevation myocardial infarction. The patient underwent cardiac catheterization. 3. Takotsubo cardiomyopathy. 4. Congestive heart failure, ejection fraction of 30%-35%, probably secondary to Takotsubo cardiomyo veronica. LifeVest has been arranged. Low dose MARGOTH inhibitor and diuretic have been added. 5. Hypertensive crisis on admission, probably secondary to acute cerebrovascular accident. 6. Hyperlipidemia. 7. Acute kidney injury on admission with creatinine of 1.36, resolved. 8. Hyponatremia. 9. Chronic kidney disease stage 3. 10. Right internal carotid artery stenosis. Please note that the patient declined 40 mg Lipitor. She prefers to continue Zocor. Plan of care was discussed with the patient and the family in detail. They stated understanding.
--- NOTE | 2018-03-08 12:42 | EKG ---
Test Reason : TIMED 0500 Blood Pressure : / mmHG Vent. Rate : 077 BPM Atrial Rate : 077 BPM P-R Int : 250 ms QRS Dur : 076 ms QT Int : 432 ms P-R-T Axes : 054 026 088 degrees QTc Int : 488 ms Sinus rhythm with 1st degree A-V block Possible Inferior infarct (cited on or before 03-MAR-2018) Anterior infarct (cited on or before 03-MAR-2018) T wave abnormality, consider lateral ischemia Abnormal ECG When compared with ECG of 05-MAR-2018 16:55, (Unconfirmed) Premature atrial complexes are no longer Present Serial changes of Anterior infarct Present Confirmed by LETY RUSSO ([id number]) on 03/08/2018 12:42:30 PM Referred By: Sea WAY Confirmed By:LETY RUSSO
--- NOTE | 2018-03-08 12:42 | EKG ---
Test Reason : POST OP Blood Pressure : / mmHG Vent. Rate : 075 BPM Atrial Rate : 075 BPM P-R Int : 236 ms QRS Dur : 072 ms QT Int : 442 ms P-R-T Axes : 056 049 101 degrees QTc Int : 493 ms Suspect unspecified pacemaker failure /Occasional atrial paced beat. Sinus rhythm with 1st degree A-V block with Premature atrial complexes Possible Inferior infarct (cited on or before 03-MAR-2018) Anterior infarct (cited on or before 03-MAR-2018) T wave abnormality, consider lateral ischemia Abnormal ECG When compared with ECG of 03-MAR-2018 17:41, Premature atrial complexes are now Present Serial changes of Anterior infarct Present Confirmed by LETY RUSSO ([id number]) on 03/08/2018 12:41:56 PM Referred By: RAYNA Confirmed By:LETY RUSSO
--- NOTE | 2018-03-08 20:14 | PRG ---
DATE OF SERVICE: 03/06/2018 SUBJECTIVE: Ms. Holloway is a pleasant 77-year-old female, who presented with the diplopia and dizziness. She reports that her diplopia is somewhat improving. She did undergo cardiac catheteriz ation, which was apparently normal. She was told that she had a Takotsubo cardiomyopathy and was rec ommended by Cardiology, Dr. Vasquez, to be started on Eliquis. She is supposed to be placed on Lif eVest for 3 months. She denies any new stroke-like symptoms. PHYSICAL EXAMINATION: VITAL SIGNS: Stable. She is afebrile. GENERAL: Well-developed, well-nourished female, in no apparent distress. NEUROLOGIC: Essentially unchanged when compared to previous visit. IMPRESSION: 1. Diplopia and dizziness, likely secondary to posterior circulation stroke affecting brainstem. 2. Takotsubo cardiomyopathy. ASSESSMENT AND PLAN: Ms. Holloway is a pleasant 77-year-old female, who presented with the epi sodes of dizziness and diplopia. She is not able to undergo MRI due to pacemaker. Her cardiac anuel terization was suggestive of Takotsubo cardiomyopathy for which she is planning on to undergo a LifeV est placement and Dr. Vasquez has also recommended Eliquis. I had a long discussion with the patie nt and explained that her stroke was likely a cardioembolic due to the fact that it is involved poste rior circulation. I would leave it up to Cardiology to decide whether she needs to be on anticoagula tion therapy. I have explained to her that if she does end up having anticoagulation therapy by Card iology, then I would recommend stopping aspirin and Plavix. If Cardiology does not start her on anti coagulation therapy, then she needs to be switched over to aspirin 81 mg and Plavix 75 mg daily. I h ad a long discussion with the patient's son and daughter who were present at bedside and answered all their questions. I have spent more than 50% of my total visit time (approximately 35 minutes) with patient's family and answering their question and concern. Thank you for consultation.
== END 2018-03-07 16:32 | disposition home or self-care (01) | DRG 64 ==
LOC: ERS 02:03 → 2NO 05:49 → 2SE 03-04 07:26
PROVIDERS: ADMIT Hospitalist; ATTEND Hospitalist
PROC: 4A023N7 Measurement of Cardiac Sampling and Pressure, Left Heart, Percutaneous Approach (ICD-10-PCS; principal; 2018-03-05)
PROC: B2111ZZ Fluoroscopy of Multiple Coronary Arteries using Low Osmolar Contrast (ICD-10-PCS; 2018-03-05)
PROC: B2151ZZ Fluoroscopy of Left Heart using Low Osmolar Contrast (ICD-10-PCS; 2018-03-05)
PROC: 4A033BC Measurement of Arterial Pressure, Coronary, Percutaneous Approach (ICD-10-PCS; 2018-03-05)
DX: I63.9 Cerebral infarction, unspecified (principal); I21.4 Non-ST elevation (NSTEMI) myocardial infarction; I51.81 Takotsubo syndrome; N17.9 Acute kidney failure, unspecified; E87.1 Hypo-osmolality and hyponatremia; I16.1 Hypertensive emergency; E78.5 Hyperlipidemia, unspecified; I12.9 Hypertensive chronic kidney disease with stage 1 through stage 4 chronic kidney disease, or unspecified chronic kidney disease; N18.3 Chronic kidney disease, stage 3 (moderate); I65.21 Occlusion and stenosis of right carotid artery; I50.9 Heart failure, unspecified; I25.10 Atherosclerotic heart disease of native coronary artery without angina pectoris; H53.2 Diplopia; Z87.891 Personal history of nicotine dependence; Z79.82 Long term (current) use of aspirin; Z79.899 Other long term (current) drug therapy; Z95.0 Presence of cardiac pacemaker
CPT/HCPCS: 36415; 70450; 70498; 71045; 80048; 80053; 80061; 81003; 81015; 82550; 82553; 83735; 84484; 85025; 85347; 87086; 93005; 93010; 93306; 93458; 93571; 93880; 94760; 96361; 96365; 96375; 99152; 99153; C1769; C1887; G8978-GP-CL; G8979-GP-CJ; G8987-GO-CI; G8988-GO-CI; G8989-GO-CI; G9168-GN-CI; G9169-GN-CI; J0153; J0583; J0696; J1644; J1650; J2001; J2250; J2405; J3010

== ENCOUNTER 2018-07-04 08:14 | Observation (INO) | payer MEDICARE, BC ==
--- NOTE | 2018-07-04 08:43 | RAD ---
SINGLE VIEW OF THE CHEST: COMPARISON: 03/03/2018. HISTORY: Hypertension and chest discomfort. FINDINGS: A single view of the chest shows a cardiomediastinal silhouette which is upper limits of normal in si ze. The pacemaker is unchanged in position. There is no evidence of consolidation, mass, or pleural effusion. IMPRESSION: No evidence of acute cardiopulmonary disease. POS: [facility]
[2018-07-04 08:56] LABS: #Eosinphils 0.1 thou/uL (0.0-0.7); #Lymphocytes 1.2 thou/uL (1.20-3.40); #Monocytes 0.5 thou/uL (0.11-0.59); #Neutrophils 2.5 thou/uL (1.40-6.50); %Basophils 0.7 % (0.0-1.0); %Eosinophils 2.3 % (0.0-10.0); %Lymphocytes 28.2 % (21.0-51.0); %Monocytes 11.9 % (0.0-10.0); %Neutrophils 56.9 % (42.0-75.0); Hemoglobin 13.4 g/dL (12.0-16.0); Mean Corpuscular HGB CONC 31.9 g/dL (32.0-36.0); Mean Corpuscular Hemoglobin 27.7 pg (27.0-31.0); Mean Corpuscular Volume 86.6 fL (78.0-98.0); Mean Platelet Volume 8.5 fL (7.4-10.4); Platelet Count 225 thou/uL (130-400); RBC Distribution Width 13.7 % (11.5-14.5); Red Blood Cell (RBC) Count 4.84 mill/uL (4.20-5.40); White Blood Cell (WBC) Count 4.4 thou/uL (4.8-10.8)
[2018-07-04 09:02] LABS: INR-International Normal Ratio 1.3; PTT 34.2 SEC (22.9-36.1)
--- NOTE | 2018-07-04 09:12 | CT ---
CT BRAIN NONCONTRAST: HISTORY: An 78-year-old female with headache and hypertension. FINDINGS: There is no midline shift or any other mass effect. There is no evidence of acute intracranial hemor rhage, large cortical infarct, obstructive hydrocephalus, or extraaxial fluid collection. The calvar ium is intact. There is diffuse parenchymal volume loss. There are low attenuation areas in the whi te matter. These are nonspecific, but in a patient of this age, they are probably chronic ischemic w emre matter changes due to microvascular atherosclerosis. IMPRESSION: 1) No acute intracranial findings. 2) Involutional changes and chronic ischemic white matter changes. jn [] POS: [facility]
[2018-07-04 09:17] LABS: ALT (SGPT) 14 U/L (8-55); AST (SGOT) 24 U/L (5-34); Albumin 4.5 g/dL (3.4-4.8); Alkaline Phosphatase 83 U/L (40-150); Anion Gap 15 mmol/L (10-20); BUN (Urea Nitrogen) 28 mg/dL (9.8-20.1); Bilirubin, Total 0.4 mg/dL (0.2-1.2); CK (CPK) 95 U/L (29-168); Calc. Creatinine Clearance 0 mL/min (70-130); Calcium 10.2 mg/dL (7.8-10.44); Carbon Dioxide 25 mmol/L (23-31); Chloride 100 mmol/L (98-107); Estimated GFR-MDRD 42; Globulin 3.6 g/dL (2.4-3.5); Glucose 94 mg/dL (83-110); Potassium 4.4 mmol/L (3.5-5.1); Protein, Total 8.1 g/dL (6.0-8.3); Sodium 136 mmol/L (136-145)
[2018-07-04] MEDS ORDERED: cloNIDine 0.1 MG TAB ONE (10:00)
[2018-07-04] MEDS ORDERED: hydrALAZINE 20 MG/ML VIAL ONE (10:52)
[2018-07-04 13:22] LABS: Troponin I Less than 0.010 ng/mL (< 0.028)
[2018-07-04] MEDS ORDERED: Ondansetron PF 4 MG/2 ML Vial IVP PRN (13:35)
[2018-07-04] MEDS ORDERED: Ondansetron ODT 4 MG TAB PO PRN (13:35)
[2018-07-04 14:12] VITALS: BMI 24.5
[2018-07-04 15:31] LABS: Troponin I Less than 0.010 ng/mL (< 0.028)
[2018-07-04] MEDS: Sodium Chloride 0.9% 1,000 ML IV SCH ×2 (18:00→21:01)
--- NOTE | 2018-07-04 19:29 | HP ---
PRIMARY CARE PHYSICIAN: Dr. Omer Parnell. CHIEF COMPLAINT: Elevated blood pressure, right arm pain, and headache. HISTORY OF PRESENT ILLNESS: Ms. Holloway is a pleasant 78-year-old female with a past medical history of hyperlipidemia, hypertension, status post pacemaker, who had presented to [facility] with an elevated blood pressure. She stated that she checked her blood pressure this morning after noticing some right arm pain that she had described as a 5/10 ache. She states that she usually checks her blood pressure throughout the day; however, she has not checked her blood pressure in about 3 to 4 days. She states prior to this morning, blood pressure has been stable; however, she had noticed a blood pressure reading of 216/100 and that was a concern for her. Therefore, she sought further evaluation in the ER. She presented to the ER without any complaints of chest pain, shortness of breath, or abdominal pain. She states she has a posterior headache, which she states is chronic. She states her right arm pain has resolved. She was recently admitted back in February where she was also found to have an elevated blood pressure. During that time, she also had an elevated troponin. She had undergone a heart catheterization, which displayed nonischemic cardiomyopathy, an echocardiogram at that time displayed an EF of 30% to 35%. 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 Over the course of the next 30 days, she states she was cleared from LifeVest and this was later discontinued. She had remained with her pacemaker. She states she follows up with Dr. 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 She denies any fever, chills, blurred vision, or dizziness. She admits to mild headache, which has improved with Tylenol. She denies chest pain, shortness of breath, or abdominal pain. No nausea or vomiting. No diarrhea. No muscle pain or gait disturbances. No numbness or tingling. She will be admitted for her hypertension urgency. She was treated successfully in the ER with clonidine and IV hydralazine, her blood pressure seemed to improve during her ER visit and ended up to 103/71. PAST MEDICAL HISTORY: 1. Hyperlipidemia. 2. Hypertension. 3. CVA. 4. Pacemaker in place. 5. Nonischemic cardiomyopathy. PAST SURGICAL HISTORY: 1. Status post pacemaker. 2. Hysterectomy. 3. Spinal surgery. SOCIAL HISTORY: She is a former smoker. She quit over 15 years ago. She denies any alcohol use or illicit drug use at this time. FAMILY HISTORY: She denies any relevant family history at this time. ALLERGIES: LATEX. CURRENT MEDICATIONS: 1. Carvedilol 12.5 mg oral twice daily. 2. Eliquis 5 mg p.o. b.i.d. 3. Simvastatin 40 mg p.o. daily. 4. Prilosec 40 mg p.o. daily. 5. Myrbetriq 25 mg oral. 6. Aspirin 81 mg daily. 7. Magnesium 500 mg oral once a day. 8. Calcium citrate 2 tablets oral once daily in the morning. 9. Probiotic one tablet oral q.a.m. REVIEW OF SYSTEMS: Positive for elevated blood pressure, mild posterior headache that she reports as being chronic, which is relieved with Tylenol and did report some right arm ache, however this has resolved. Denies any other symptoms at this time unless stated in the HPI. PHYSICAL EXAMINATION: VITAL SIGNS: Blood pressure 130/60, respirations 18, pulse 78, temperature 97.9 degrees Fahrenheit, and O2 saturation 98% on room air. GENERAL: The patient is sitting comfortable up in chair. She is awake, alert, and oriented x3. No acute distress noted. HEENT: Normocephalic and atraumatic. Pupils equal, round, and reactive to light. Extraocular muscles intact. No scleral icterus noted. No nystagmus. Ears, nose, and throat exam unremarkable. Oropharynx clear without any exudates or erythema. Uvula is midline. NECK: No JVD. No bruit. Trachea midline. Moist mucous membranes noted. CARDIAC: Positive S1 and S2. Regular rate and rhythm. No murmur. No gallop. No rubs noted. ABDOMEN: Soft, nontender, and nondistended. Bowel sounds present. No masses or peritoneal signs appreciated. EXTREMITIES: Strength 5+ bilaterally upper and lower extremities. Good radial and pedal pulses noted. Moves all extremities equally. NEUROLOGIC: Cranial nerves 2 through 12 grossly intact. No focal deficits noted. Speech is intact. Hearing intact. SKIN: Warm, dry, and intact. No rashes noted. PSYCHIATRIC: Normal mood and affect. LABORATORY DATA: WBC 4.4, RBC 4.84, hemoglobin 13.4, and platelets 225. PT 16, INR 1.3, and PTT 34.2. Sodium 136, potassium 4.4, and creatinine 1.24. Estimated GFR 42. AST 24, ALT 14, and alkaline phosphatase 84. Creatine kinase 95. Troponin less than 0.010 x3. BNP 170. DIAGNOSTIC IMAGING: CT of brain showed no acute intracranial findings, but did show some chronic ischemic white matter changes. Chest x-ray revealed no evidence of acute cardiopulmonary disease. ASSESSMENT AND PLAN: 1. Hypertensive urgency. Blood pressure has improved since carvedilol and IV hydralazine in the emergency room. We will restart her home medications; however, we will hold lisinopril at this time secondary to acute kidney injury with creatinine of 1.24. We will monitor the patient's blood pressure and other vital signs closely overnight with further changes as needed. 2. Headache. The patient states that this is chronic, however, with her previous cerebrovascular accident back in February, we will place consult for Neurology Services, Dr. Tubbs for further evaluation and possible management. We will await further recommendations prior to further testing. We will place the patient on a walking program. 3. History of carotid stenosis, place consult for Cardiovascular Surgery for further evaluation. We will continue on the patient's home medications for medical management at this time. 4. Hyperlipidemia. Continue home regimen. 5. Ischemic cardiomyopathy. The patient recently had an extensive cardiac workup back in February. She follows with Cardiology as outpatient, Dr. Davison. Troponin negative x3 and she is currently asymptomatic at this time. Monitor the patient closely overnight; however, we will also consider Cardiology consult while in the hospital if the patient becomes symptomatic. 6. Deep venous thrombosis prophylaxis with the patient's home Eliquis 5 mg p.o. b.i.d. 7. On gastrointestinal prophylaxis with Pepcid twice daily and Zofran as needed for nausea. We will place on mild laxative to prevent any constipation during hospital course. Now, she states that she has not had a bowel movement in 2 days, which is normal for her. DISPOSITION: Further medical management pending inpatient progress and clinical findings. Job ID: [id number]
--- NOTE | 2018-07-04 20:27 | CON ---
DATE OF CONSULTATION: 07/04/2018 CHIEF COMPLAINT: Right arm pain and pain at the back of her head or scalp. HISTORY OF PRESENT ILLNESS: The patient is an 78-year-old white woman with hypertension, coronary artery disease, and conduction system disease, who has undergone dual-chamber pacemaker implantation. The patient says that she normally checks her blood pressure fairly routinely, but when her right arm began to ache today, she realized she had not checked it in a few days and when she did, her systolic blood pressure was somewhat in excess of 200 mmHg and she rechecked it not long after that and did not come down, in fact it had gone up some. The patient in February had an episode of a pain behind her right eye associated with horizontal diplopia and nausea that was presumed to represent a brainstem infarct (CT scanning was unrevealing, MR scanning was not possible because of her pacemaker). The patient concerned that she might be having a stroke, summoned the EMS with her Life Alert bracelet and she was brought to the emergency room. Upon arrival in the emergency room, her heart rate was 68 and her blood pressure was 210/122, and by report, there were no focal findings on her neurologic exam except perhaps some subtle eye findings. PAST MEDICAL HISTORY: The patient's past medical history is significant for her hypertension, hyperlipidemia, conduction system disease (pacemaker implantation was done following an episode of syncope about 5 years ago), coronary artery disease (during her February hospitalization, echocardiography showed a left ventricular ejection fraction of about 30% to 35% with akinesis of the distal septum and anterior wall and apex. Cardiac catheterization during that hospitalization suggested takotsubo cardiomyopathy with about a 50% mid LAD lesion and serial 40% and 50% right coronary lesions with no significant disease in the circumflex system. LVEF by ventriculography was estimated at 30%). MEDICATIONS: The patient's current home medications are; 1. Baby aspirin a day. 2. Eliquis 5 mg b.i.d. 3. Coreg b.i.d. (12.5 mg b.i.d. was listed on her discharge summary in February). 4. Lisinopril 2.5 mg a day. 5. Lasix 20 mg a day. 6. Prilosec 40 mg a day. 7. Myrbetriq ER 25 mg a day. 8. Zocor 40 mg at bedtime. 9. Calcium carbonate 500 mg b.i.d. 10. Magnesium oxide 500 mg a day. ALLERGIES: SHE REPORTS AN ADVERSE REACTION TO LATEX. FAMILY HISTORY: Significant for myocardial infarctions in both of her parents. REVIEW OF SYSTEMS: Negative for any eye symptoms consistent with amaurosis fugax. Negative for any dysarthria. Negative for any syncope. Negative for any dizziness. Negative for any paresthesias or focal weakness. Negative for any chest pain, pressure, or squeezing. Negative for any palpitations. Negative for any shortness of breath, diaphoresis, or nausea. PHYSICAL EXAMINATION: GENERAL: She is a pleasant woman, who looks about her stated age, in no distress. VITAL SIGNS: Heart rate is 78, blood pressure now is 119/56, room air O2 saturations are 97%, and temperature is 97.6. Height is 5 feet 5 inches and weight is 147-1/4 pounds. HEENT: She has no xanthelasma. NECK: No JVD. No carotid bruits. CHEST: Clear to auscultation. HEART: She has a regular rate and rhythm without murmur or gallop. ABDOMEN: Soft and nontender. EXTREMITIES: She has no clubbing, cyanosis, or edema. NEUROLOGIC: Cranial nerves 2 through 12 are grossly intact as is upper and lower extremity strength. LABORATORY DATA: Laboratory exam showed a white count of 4.4, hemoglobin of 13.4, hematocrit 41.9, and platelets 225,000. Electrolytes were normal. Glucose was 94, BUN 28, and creatinine 1.24. LFTs were normal. Calcium 10.2, protein 8.1, and albumin 4.5. BNP 170.1. Serial troponins were undetectable. Chest x-ray showed borderline cardiomegaly with aortic knob calcifications. Review of her carotid ultrasonography from February showed plaque within the vessel wall, but no increase in velocities with internal carotid velocities peaking at 65 on the right and 60 on the left and in the common, 37 on the right and 44 on the left with ratios of 1.69 on the right and 1.71 on the left. The CTA in February showed extensive calcification in the arch and great vessels extending on up into the neck. The radiologist's report described a 50% to 60% stenosis of the right internal carotid proximally and no stenosis on the left. When Dr. Crews saw the patient at that time, he felt that the right-sided stenosis was about 50%. I think that it might be perhaps a little bit less than that, but admittedly there is so much calcification in the vessel cabral that I find it difficult to make that judgment on relatively tortuous vessels. IMPRESSION AND RECOMMENDATIONS: Her symptoms do not sound particularly neurologic to me and it is probably not worthwhile even repeating her carotid studies to see if anything is changed in the interim. Job ID: [id number]
--- NOTE | 2018-07-04 20:38 | CON ---
DATE OF CONSULTATION: 07/04/2018 NEUROLOGY CONSULTATION REASON FOR REFERRAL: Possible CVA. HISTORY OF PRESENT ILLNESS: This is an 78-year-old female. She was previously admitted here in February of 2018. At that time, she had double vision, some vertigo and nausea and vomiting. The double vision persisted for about [address] of the head at that time that did not show any acute stroke. It was thought that she may have had a small brainstem stroke. She could not have MRI of the brain because of a pacemaker. Her chronic medical problems include hypertension, cardiomyopathy, arrhythmia, CVA, and hyperlipidemia. She states that she has been taking Eliquis at home for cardiomyopathy. When she woke up on the day of admission, she noticed that her right arm ached, it was the whole arm and it lasted for possibly an hour. She states that she does have chronic shoulder problems on the right side. She may tend to sleep on one side or the other. Her right arm was not weak and was not numb and did not tingle. She was concerned maybe she was having a heart attack. She took her blood pressure in her left arm and it was 200 systolic. She tried to calm herself down and took it again and it was still elevated, so she came to the ER. At this time, she did not have any double vision or slurred speech or nausea, vomiting, or vertigo. PAST MEDICAL HISTORY: Hypertension, suspected brainstem CVA in February of 2018, hyperlipidemia, and coronary artery disease. SOCIAL HISTORY: She does not drink alcohol. She smoked in the past, but quit 15 years ago. FAMILY HISTORY: Positive for cardiac arrhythmias. According to the son, they are mostly supraventricular. REVIEW OF SYSTEMS: A 15-point review is negative except for the present illness. PHYSICAL EXAMINATION: GENERAL: Her exam shows she is awake and alert, very well-groomed 78-year-old female, pleasant and cooperative. VITAL SIGNS: Blood pressure 119/58, pulse 78, regular at this time, temperature 97.6, O2 saturation 97% on room air. Blood pressure is 119/56 in semi-Bryant's position. HEENT: Negative. Throat, not red. Palate is midline. LUNGS: Clear. HEART: Normal rhythm at this time. ABDOMEN: Not protuberant. No pain. EXTREMITIES: No clubbing, cyanosis, or edema. SKIN: No rashes. JOINTS: No swelling. She does have limited range of motion and pain in her right shoulder when she tries to rotate her arm or put her arm in back of her. NEUROLOGICAL: She is awake, alert, oriented x3. Cranial nerves 2 through 12 tested normally. Extraocular movements are normal. Pupils are 2 mm bilaterally and reactive. Motor 5/5 strength in arms and legs. No atrophy or fasciculations. Tone and bulk are normal. DTRs are 2+. Toes are downgoing. Sensation is normal to light touch and temperature throughout. Coordination, jaegub-[id number] and qtvv-ta-[id number] is normal. Test results showed that she had a CT of the brain without contrast on 07/04/2018 at 8:30 a.m., showing some chronic small-vessel disease and some atrophy. No acute strokes were seen and nothing in the brainstem is obvious. Chest x-ray 1-view AP showed the cardiomediastinal silhouette is in the upper limits of normal and the pacemaker is present. LABORATORY DATA: Labs showed a white count of 4.4, hemoglobin 13.4, hematocrit 41.9, platelets 225,000, neutrophils 56, lymphocytes 28.2. Sodium was 136, potassium 4.4, CO2 of 25, BUN is 28, creatinine is 1.24, AST 24, ALT is 14. Her troponins, three of them were done and they were less than 0.01. INR is 1.3 and Protime is 16. Review of her chart shows that she was here in February as mentioned and at that time, CT of the brain was done without contrast and it showed chronic small-vessel disease and some atrophy, but no definite infarcts. Carotid Doppler was done on 03/04/2018. There was some [id number] bilateral plaque, but no significant stenosis was seen. There was a CT angio that was performed on 03/06/2018 that was done of the neck with and without contrast. The aortic arch showed some vascular calcifications. There was a tortuous right internal carotid artery. There was approximately 50% to 60% right internal carotid stenosis. Vascular surgeon saw her at that time and did not think that it was significant enough for carotid endarterectomy. Also carotid stenosis would not be a culprit for brainstem stroke as that would be posterior. She had an echocardiogram done at that admission also in February showing ejection fraction low at 30% to 35%. Pacemaker was present. Some akinetic motion of the apical anterior wall in the left ventricle, apical septal wall and apical wall was also akinetic in the left ventricle. The patient states that she wore a LifeVest for about 6 weeks after that and no significant arrhythmia was seen. She states that she has been on Eliquis. IMPRESSION: At this time, she does not appear to have a recurrent stroke or transient ischemic attack. Her previous stroke-like symptoms in February could have been due to her brainstem stroke. She has some non-significant carotid disease for which she will follow up with her primary care physician or vascular surgeon with [facility]. She appears to have a cardiomyopathy and she has been on Eliquis for possible arrhythmias or embolic episodes. The aching that she had in her right arm could have been related to her right shoulder, chronic problem, possibly a rotator cuff problem. It is really not consistent with cerebrovascular accident or transient ischemic attack as there was no tingling or numbness or weakness. Aching of the right arm. Symptoms are not consistent with stroke or transient ischemic attack or seizure at this point. PLAN: I deferred anticoagulation to the security delivery specialist due to her cardiomyopathy and the patient states that she has been on Eliquis. Advised to follow up with her neurologist, which she has seen Dr. Gonzalez, as an outpatient. No need for any further neurological testing at this admission. Job ID: [id number]
[2018-07-05] MEDS ORDERED: Calcium Carbonate 500 MG ChewTAB PO SCH (09:00)
[2018-07-05] MEDS ORDERED: Carvedilol 6.25 MG TAB PO SCH (09:00)
[2018-07-05] MEDS ORDERED: Apixaban 5 MG TAB PO SCH (09:00)
[2018-07-05] MEDS ORDERED: Furosemide 20 MG TAB PO SCH (09:00)
[2018-07-05] MEDS ORDERED: Magnesium Oxide 250 MG TAB PO SCH (09:00)
[2018-07-05] MEDS ORDERED: Aspirin 81 mg Enteric Coated Tablet PO SCH (09:00)
[2018-07-05 09:36] LABS: #Eosinphils 0.1 thou/uL (0.0-0.7); #Lymphocytes 1.3 thou/uL (1.20-3.40); #Monocytes 0.5 thou/uL (0.11-0.59); %Basophils 0.4 % (0.0-1.0); %Eosinophils 1.5 % (0.0-10.0); %Lymphocytes 26.9 % (21.0-51.0); %Monocytes 9.3 % (0.0-10.0); Hemoglobin 12.4 g/dL (12.0-16.0); Mean Corpuscular HGB CONC 31.9 g/dL (32.0-36.0); Mean Corpuscular Hemoglobin 27.5 pg (27.0-31.0); Mean Corpuscular Volume 86.1 fL (78.0-98.0); Mean Platelet Volume 8.8 fL (7.4-10.4); Platelet Count 211 thou/uL (130-400); RBC Distribution Width 13.8 % (11.5-14.5); Red Blood Cell (RBC) Count 4.53 mill/uL (4.20-5.40); White Blood Cell (WBC) Count 4.8 thou/uL (4.8-10.8)
[2018-07-05 10:01] LABS: ALT (SGPT) 12 U/L (8-55); AST (SGOT) 22 U/L (5-34); Albumin 3.8 g/dL (3.4-4.8); Alkaline Phosphatase 72 U/L (40-150); Anion Gap 15 mmol/L (10-20); BUN (Urea Nitrogen) 20 mg/dL (9.8-20.1); Bilirubin, Total 0.4 mg/dL (0.2-1.2); Calc. Creatinine Clearance 41 mL/min (70-130); Calcium 9.5 mg/dL (7.8-10.44); Carbon Dioxide 22 mmol/L (23-31); Chloride 103 mmol/L (98-107); Estimated GFR-MDRD 45; Globulin 3.2 g/dL (2.4-3.5); Glucose 132 mg/dL (83-110); Potassium 3.8 mmol/L (3.5-5.1); Sodium 136 mmol/L (136-145)
[2018-07-05 12:08] VITALS: BP 155/87; TEMP 97.9
[2018-07-05] MEDS ORDERED: Atorvastatin Calcium 20 MG TAB PO SCH (21:00)
--- NOTE | 2018-07-06 11:35 | DIS ---
DATE OF ADMISSION: 07/04/2018 DATE OF DISCHARGE: 07/05/2018 PRIMARY CARE PHYSICIAN: Dr. Dove. CONSULTANTS: 1. Dr. Oma Tubbs of Neurology. 2. Dr. Clive Luke for CV Surgery. PROCEDURES: 1. The patient had a CT of the brain, which showed;. a. No acute intracranial findings. b. Involutional changes and chronic ischemic white matter changes. 2. The patient also had a chest x-ray, which showed no evidence of acute cardiopulmonary process. DISCHARGE DIAGNOSES: 1. Hypertensive urgency, resolved. 2. History of carotid stenosis. 3. Hyperlipidemia. 4. Ischemic cardiomyopathy. 5. Pacemaker in place. HOSPITAL COURSE: Ms. Holloway is a very pleasant 78-year-old female with past medical history of hyperlipidemia, hypertension, status post pacemaker, who presented to the [facility] Emergency room with an elevated blood pressure. She stated that she checked her blood pressure in the morning and noticed that she had also had some right arm pain with that ache. When she checked it, it was 216/100, and she is concerned, so she sought an evaluation in the ER. She denied any chest pain, shortness of breath, or abdominal pain. She did state that she had a posterior headache, which she states it is chronic. She was recently admitted in February, also had elevated blood pressure at that time. She underwent a heart catheterization and an echocardiogram, which showed an EF of 30% to 35%. She also has a history of a posterior CVA and was started on Eliquis, and was put on a LifeVest, but she states she was taken off it about 30 days after. 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 Job ID: [id number]
--- NOTE | 2018-07-06 12:57 | EKG ---
Test Reason : HTN Blood Pressure : / mmHG Vent. Rate : 067 BPM Atrial Rate : 067 BPM P-R Int : 266 ms QRS Dur : 072 ms QT Int : 402 ms P-R-T Axes : 097 005 078 degrees QTc Int : 424 ms Sinus rhythm with 1st degree A-V block Inferior infarct , age undetermined Anterior infarct , age undetermined Abnormal ECG Confirmed by JOSÉ MIGUEL TERRAZAS ([id number]), commercial production editor LUDWIN LLAMAS ([id number]) on 07/06/2018 12:56:41 PM Referred By: Confirmed By:JOSÉ MIGUEL TERRAZAS
--- NOTE | 2018-07-07 10:23 | DIS ---
DATE OF ADMISSION: 07/04/2018 DATE OF DISCHARGE: 07/05/2018 PRIMARY CARE PHYSICIAN: Dr. Dove. CONSULTANTS: 1. Dr. Tubbs of Neurology. 2. Dr. Luke of CV Surgery. PROCEDURES: The patient had a chest x-ray that showed no acute findings. Also had a head CT of her brain, which showed; 1. No acute intracranial findings. 2. Involutional changes and chronic ischemic white matter changes. DISCHARGE DIAGNOSES: 1. Hypertensive urgency, resolved. 2. Hyperlipidemia. 3. Hypertension. 4. History of cerebrovascular accident. 5. Pacemaker. 6. Nonischemic cardiomyopathy. HOSPITAL COURSE: Ms. Holloway is a very pleasant 78-year-old female, who presented to the emergency room on 07/04/2018 after checking her blood pressure that day and it was 216/100. Describes that she has an aching pain in her right arm, describes it as a 5/10. Reports that she normally takes her blood pressure, but she had not taken it in 3 to 4 days and when she took it, it was elevated, which concerned her and she presented herself to the ER. She denied any chest pain or shortness of breath at that time. Does report that she has a posterior headache, which she reports as chronic and by the time she got to the ER, her right arm pain had resolved. She was recently admitted in February of 2018 and underwent a heart catheterization which displayed nonischemic cardiomyopathy. Also had an echocardiogram with an EF of 30% to 35%. She has been on Eliquis for a posterior CVA and was placed on a LifeVest during her visit in February, which she reports was cleared and taken off about a month later. She sees Dr. Davison, her clinical scientist at [facility]. During the hospital visit, she denied any chest pain, shortness of breath, or abdominal pain. No nausea or vomiting. On day of discharge, she denied any complaints and was happy that her blood pressure had normalized. In the emergency room, she was given hydralazine and some clonidine. She was restarted on her home medications and her blood pressure on discharge was 145/86. The patient requesting to go home. Case was discussed with Dr. June, who agreed with discharge plan. She should follow up with her primary care physician within 1 week, with clinical scientist within the next 2 to 3 weeks. REVIEW OF SYSTEMS: The patient was examined on day of discharge, reports some mild headache in the posterior head, which she states has been there since her CVA. Denies any changes to vision. Denies any chest pain, shortness of breath, any abdominal pain, nausea, vomiting, or diarrhea. All other systems were reviewed and are negative unless mentioned above. PHYSICAL EXAMINATION: VITAL SIGNS: Temp 98, pulse 71, respirations 16, pulse ox is 94% on room air, and blood pressure 145/86. CONSTITUTIONAL: The patient is alert and oriented to person, place, and time, is in no acute distress. HEAD: Atraumatic and normocephalic. Eyes; eyelids are normal to inspection. Pupils are equal, round, and reactive to light. Extraocular muscles are intact. ENT: Mouth exam is normal. Mucous membranes are moist. NECK: Normal range of motion. Trachea is midline. RESPIRATORY: Chest; breath sounds are clear. No respiratory distress is noted. CARDIOVASCULAR: S1 and S2. Heart sounds are normal. ABDOMEN: Female. Nontender. Bowel sounds are heard. BACK: Normal inspection. Normal range of motion. No tenderness. EXTREMITIES: Upper extremities inspection normal. Normal range of motion. Motor strength is normal bilaterally. Sensation and radial pulses are equal bilaterally. Lower extremity; normal inspection. Normal range of motion. Strength is normal. Sensation intact. Posterior and pedal pulses are equal bilaterally. NEURO: The patient is oriented to person, place, and time. Speech is normal. No focal or sensory or motor deficits. MEDICATIONS: The patient will be restarted on her home medications which include; 1. Aspirin 81 mg p.o. q.p.m. 2. Calcium 500 mg p.o. b.i.d. 3. Carvedilol 12.5 mg p.o. b.i.d. 4. Mag-Ox 500 mg p.o. daily. 5. Mirabegron 25 mg p.o. daily. 6. Omeprazole 40 mg p.o. daily. 7. Zocor 40 mg p.o. at bedtime. 8. Eliquis 5 mg p.o. b.i.d. 9. Lasix 20 mg p.o. daily. 10. Lisinopril 2.5 mg p.o. daily. ALLERGIES: LATEX. CONDITION: The patient's condition is stable. DISPOSITION: The patient will be discharged home. REFERRALS: The patient should follow up with Dr. Dove within the next week. Follow up with Dr. Davison, clinical scientist in next 2 to 3 weeks. Job ID: [id number]
== END 2018-07-05 16:28 | disposition home or self-care (01) ==
LOC: ERS 08:14 → ERHOLD 10:29 → 2SE 13:11
PROVIDERS: ADMIT Internal Medicine Infectious Disease; ATTEND Internal Medicine Infectious Disease
DX: I16.0 Hypertensive urgency (principal); E78.5 Hyperlipidemia, unspecified; I25.5 Ischemic cardiomyopathy; I10 Essential (primary) hypertension; Z87.891 Personal history of nicotine dependence; Z91.040 Latex allergy status; Z79.899 Other long term (current) drug therapy; Z79.82 Long term (current) use of aspirin; Z79.01 Long term (current) use of anticoagulants; Z86.73 Personal history of transient ischemic attack (TIA), and cerebral infarction without residual deficits; Z95.0 Presence of cardiac pacemaker
CPT/HCPCS: 70450; 71045; 80053 ×2; 82550; 83880; 84484 ×2; 85025 ×2; 85610; 85730; 93005; 96361; 96374; 99285; G0378 ×2; 36415; 36416; J0360